=== PATIENT | male | born 1945 | race Native Hawaiian/Other Pacific Islander ===

== ENCOUNTER 2017-03-12 17:03 | Emergency (ER) | payer BC ==
[~2017-03-12] VITALS: Ht 177.8 cm; Wt 103.4 kg
[2017-03-12 17:30] VITALS: TEMP 97.9
[2017-03-12 17:48] LABS: PLATELET COUNT 157 K/uL (142-355)
[2017-03-12 17:53] LABS: POTASSIUM 4.1 mmol/L (3.6-5.2); SODIUM 136 mmol/L (136-145)
[2017-03-12 18:55] VITALS: BP 138/82
== END 2017-03-12 18:55 | disposition home or self-care (01) ==
LOC: ED 17:03
DX: R05 Cough (principal); R91.1 Solitary pulmonary nodule
CPT/HCPCS: 36415; 80048; 81000; 85027; 93005; 99283